=== PATIENT | female | born 1945 | race Caucasian/White ===

== ENCOUNTER 2024-03-11 10:00 | Outpatient (CLI) | payer MEDICARE, BC, SELFPAY ==
--- NOTE | 2024-03-11 10:15 | CRLHL7_ITS ---
For Patients: As a result of the Century Cures Act, medical imaging exams and procedure reports are released immediately into your electronic medical record. You may view this report before your referring provider. If you have questions, please contact your health care provider. Addendum: Pathology consistent with invasive ductal carcinoma, grade I/III. This is concordant. Appropriate action recommended. Dictated by: James Li MD @03/14/2024 1:14:56 PM / CRL:jj ULTRASOUND-GUIDED LEFT BREAST BIOPSY AND POST-BIOPSY DIGITAL MAMMOGRAM FOR BIOPSY MARKER PLACEMENT CLINICAL HISTORY: Indeterminate mass. COMPARISON STUDIES: 03/04/2024. TECHNIQUE: Real-time ultrasound with image documentation was used for targeting the breast lesion. Core biopsy specimens were obtained using an automated gun with a 18-gauge biopsy needle. Post-biopsy CC and ML digital mammograms were obtained to document position of the biopsy marker. CONSENT and TIME OUT: The procedure, risks, and alternatives were explained to the patient and a consent was signed. Philip Protocol was followed including pre-procedure verification that relevant information/documentation was available, reviewed and properly matched to the patient; consent accurate and complete; and equipment and supplies available. Time Out was conducted just prior to starting procedure to verify the four required elements: patient identity, correct side/site marked (if applicable), procedure, relevant images/results properly labeled and displayed (if applicable). PROCEDURE: The patient was positioned supine on the ultrasound table. The breast was prepped with ChloraPrep. 8 cc of 1 percent lidocaine used for local anesthesia. Core samples were obtained. A sterile metal biopsy clip was placed percutaneously to jeremiah the lesion position within the breast. The specimens were placed in 10% formalin and sent to the pathology department. Pressure was held on the biopsy site until all bleeding subsided. The skin incision was closed with Steri-Strips. An ice pack was positioned over the biopsy site. Post-biopsy instructions were reviewed with the patient, and a written copy was given to her. LATERALITY: LEFT breast. LESION: Heterogeneously hyperechoic solid nodule at mid depth measuring 6 x 5 x 7 mm at 9 o`clock 5 cm from the nipple. SUSPICION FOR MALIGNANCY: High. NUMBER OF SAMPLES: 6. BIOPSY CLIP SHAPE: Oval. PROXIMITY OF CLIP TO TARGET: Within the lesion. IMPRESSION: Ultrasound-guided breast biopsy. When the pathology report is available, an addendum to this report will be made. ACR not applicable Dictated by James Li MD @ 03/11/2024 11:21:47 AM /sp/fouzia SP/Dictated by: James Li MD @ 03/11/2024 11:22:00 AM Signed by: James Li @ 03/11/2024 2:24:59 PM (Electronic Signature) (Electronically Signed)
--- NOTE | 2024-03-11 11:00 | CRLHL7_ITS ---
For Patients: As a result of the Century Cures Act, medical imaging exams and procedure reports are released immediately into your electronic medical record. You may view this report before your referring provider. If you have questions, please contact your health care provider. PLEASE SEE LEFT BREAST ULTRASOUND-GUIDED BIOPSY OF SAME DAY. CRL:sp SP/Dictated by: James Li MD @ 03/11/2024 12:33:00 PM (Electronically Signed)
== END 2024-03-11 10:01 | disposition home or self-care (01) ==
LOC: US 10:03
PROVIDERS: PCP Family Medicine; Visit Provider Family Medicine
DX: N63.20 Unspecified lump in the left breast, unspecified quadrant (principal); C50.912 Malignant neoplasm of unspecified site of left female breast; R92.8 Other abnormal and inconclusive findings on diagnostic imaging of breast
CPT/HCPCS: 19083; 77065; 88305; 88360; 88361; A4648; A4649

== ENCOUNTER 2024-04-02 06:57 | Day surgery (SDC) | payer MEDICARE, BC, SELFPAY ==
[2024-04-02] VITALS (7 sets, daily range): BP systolic 99–139; BP diastolic 51–78; PULSE 74–84; RESP 16; TEMP 36.4–36.6; O2SAT 92–94; BMI 33.3
--- OUTSIDE RECORDS SUMMARY | 2024-04-02 07:09 | XMS_ITS | Clinical Summary ---
Author Organization [employer] [facility] Address [place], [place] [address] Care Team Providers Care Catering Sous Chef Name Role Phone Natalia Odonnell MD Unavailable [phone] Anna Trujillo MD Unavailable Shira Estes DO Primary Care Provider [phone] Allergies Active Allergy Reactions Criticality Noted Date Comments Dust Mites 11/16/2006 Medications Medication Sig Dispensed Refills Start Date End Date Status vit C-vit Q-myjcuv-bfur ox-lutein (PRESERVISION) 226 mg-200 unit -5 mg-0.8 mg cap Take 1 capsule by mouth once daily. 0 11/29/2016 Active inhalational spacing deviceIndications:Road Train Driver gigi obstructive pulmonary disease, unspecified COPD type (HC) For home use. 1 for each inhaler 2 Each 12/13/2021 Active valACYclovir (VALTREX) 1 gram tabletIndications:Cold sore 2 g twice daily for 1 day 4 Tablet 2 12/14/2022 Active Ca carb-Ca gluc-Mg ox-Mg gluco (Calcium Magnesium) 500 mg calcium -250 mg tabIndications:Osteope shonda of both hips Take 1 Tablet by mouth once daily. 90 Tablet 3 01/16/2023 Active albuterol HFA (Ventolin HFA) 90 mcg/actuation inhalerIndications:Chr onic obstructive pulmonary disease, unspecified COPD type (HC) Inhale 2 Puffs by mouth every 4 hours if needed for Shortness of Breath 1st choice or Wheezing 1st choice. 1 Each 3 12/07/2023 Active alendronate (FOSAMAX) 70 mg tabletIndications:Oste openia of both hips Take 1 Tablet (70 mg) by mouth once a week in the morning. Take on empty stomach with full glass of water. Do not lie down for 1 hr. 12 Tablet 3 12/07/2023 Active atorvastatin (LIPITOR) 20 mg tabletIndications:Hype rlipidemia, unspecified hyperlipidemia type Take 1 Tablet (20 mg) by mouth at bedtime. 90 Tablet 3 12/07/2023 Active fluticasone (50 mcg per actuation) nasal solution (FLONASE)Indications:A llergic rhinitis due to pollen, unspecified seasonality Inhale 2 Sprays to both nostrils once daily. 16 g 3 12/07/2023 Active fluticasone propion-salmeteroL (Advair Diskus) 250-50 mcg/Dose diskus inhalerIndications:Chr onic obstructive pulmonary disease, unspecified COPD type (HC) Inhale 1 Puff by mouth two times daily. 3 Each 3 12/07/2023 Active ibuprofen (ADVIL; MOTRIN) 800 mg tabletIndications:Pain 1 tablet by mouth daily with food 90 Tablet 2 12/07/2023 Active ipratropium (Atrovent HFA) 17 mcg/actuation inhalerIndications:Chr onic obstructive pulmonary disease, unspecified COPD type (HC) Inhale 1 Puff by mouth two times daily. 12.9 g 3 12/07/2023 Active levothyroxine (SYNTHROID) 137 mcg tabletIndications:Acqu ired hypothyroidism Take 1 Tablet (137 mcg) by mouth before breakfast. Best if taken on empty stomach. 90 Tablet 3 01/21/2024 Active Active Problems Problem Noted Date Diagnosed Date ACP (advance care planning) 02/11/2020 Overview: HCD has been received. See HCD 04/30/2020. FRANCIA Woods Advance Care Planning Educator Helped patient 1:1 reviewing the Health Care Directive by phone. She will send in once completed. FRANCIA Woods Advance Care Planning Educator CODE STATUS VARIABLE (see below) 12/06/2018 Overview: As of 11/2019: Patient tells me if she was in hospital and needed resuscitated she would want to be FULL CODE unless covid19 would NOT want intubated. If in fpc care or had cancer, would NOT want to be resuscitated. Would NOT want resuscitated if found down at home. Patient reports she has 2 sons and knows they would make right decision. Osteopenia of thigh 12/19/2017 Overview: Dexa 11/2017, basic bone health recommended. Repeat 3-5yrs Colon polyps 09/26/2014 Personal history of colonic polyps 03/30/2012 Overview: Colonoscopy 02/2012 diverticulosis repeat in 5 years Colonoscopy 03/2017 diverticulosis repeat in 5 years Colonoscopy 03/2022 severe diverticuli, repeat in 5 years, propofol COPD (chronic obstructive pulmonary disease) Pancreatic cyst 12/20/2011 Overview: History pancreatic cyst, was followed by [facility]. At last visit with them??told no longer need follow since stable for years (see scanned consult).??She saw Dr Hancock 03/2018 for 2nd opinion and plan was to get MRI 1 year later to confirm stability per note.??This was postponed due to COVID-19 pandemic. Repeat then done 11/2020 as below Abdominal MRI 11/2020: pancreatic cyst is 3mm and unchanged. The radiologist recommended follow up abdominal MRI in 2 years. Other and unspecified hyperlipidemia 11/16/2006 Unspecified hypothyroidism 11/16/2006 Macular degeneration (senile) of retina, unspeci fied 11/16/2006 Resolved Problems Problem Noted Date Diagnosed Date Resolved Date Severe obesity (BMI 35.0-39. 9) with comorbidity 06/27/2016 12/14/2022 Osteoporosis, unspecified 11/16/2006 Encounters Date Type Department Care Team Description 03/19/2024 Telephone [facility] [address] [place] [address] Fabian Ledbetter MD ORDER NEEDED 03/18/2024 2:20 PM CDT Preop Visit [facility] [address] [place] [address] Shira Etses DO Preoperative Exam (04/02/24, Lumpectomy, [facility] Dr. Ledbetter) 03/18/2024 1:30 PM CDT Office Visit [facility] [address] [place] [address] Fabian Ledbetter MD Consult (lump in left breast) 03/18/2024 Travel 03/12/2024 Orders Only [facility] [address] [place] [address] Shira Estes DO 3 scans: (3-Ord) [facility], US GUIDED BIOPSY LT, 03/11/2024 03/11/2024 Lab Requisition [facility] [phone] Unknown, Doctor 03/04/2024 2:30 PM CDT Ancillary Procedure [facility] [address] [place] [address] 03/04/2024 2:00 PM CDT Ancillary Procedure [facility] [address] [place] [address] 03/04/2024 Ancillary Orders [facility] [address] [place] [address] Shira Estes DO 03/04/2024 Travel 02/15/2024 Telephone [facility] [address] [place] [address] Shira Estes DO Imaging (mammogram results) 02/13/2024 9:20 AM CDT Ancillary Procedure [facility] [address] [place] [address] 02/13/2024 Travel 01/21/2024 Orders Only [facility] [address] [place] [address] Shira Estes DO <No scans attached> 01/17/2024 10:25 AM CDT Office Visit [facility] [address] [place] [address] Shira Estes DO Preoperative Exam (7/11/24 right cataract surgery [facility]); Hernia (Above umbilicus) 01/17/2024 Travel 01/03/2024 Orders Only [facility] Scanner 1 scan: (1-Ord) [facility], SHAVE BIOPSIES: RT CENTRAL MALAR CHEEK, LT INFERIOR ANTERIOR NECK, and LT PROXIMAL MEDIAL CALF , 01/03/2024 from Last 3 Months Immunizations Name Administration Dates Next Due Amb Influenza, Inactivated A IIV4 (Age 65+ Years) Preserv Free 05/05/2020 COVID-19 vaccine (Moderna 100mcg/0.5mL) PF, MDV 09/15/2020,08/18/2020 COVID-19 vaccine (Moderna Baltazar mee 50mcg/0.25mL) PF, MDV 11/10/2021,06/03/2021 Influenza A (H1N1), Inactiva isaias (Age >=3 Years) 07/18/2009 Influenza, High-dose Inactivated 019,05/09/2018,05/02/2015,04/15 Influenza, High-dose Quadriv alent Inactivated 04/21/2022,04/16/2021 Influenza, IIV3 (Age >=3 years) 03/31/2009 Influenza, Inactivated AIIV4 (Age 65+ Years) Preserv Free 04/17/2023 Influenza, Inactivated IIV3 (Age 65+ Years) Preserv Free 03/28/2017 Pneumococcal Poly,23-Valent (Pneumovax) 11/29/2016,12/11/2008 Pneumococcal conj 13-Valent (Prevnar 13) 12/08/2014 RSV, Recombinant ADJ Reconst ituted (Arexvy 120MCG/0.5mL) 04/17/2023 Td, Preservative Free (age >= 7 Years) 8 Tdap 01/20/2022 Zoster (Shingrix-RZV, recombinant) 04/04/2018, Zoster (Zostavax-ZVL, live) 02/26/2007 Family History Medical History Relation Name Comments Cancer-breast Mother Cancer-breast Sister half sister Cancer-ovarian No Family History Relation Name Status Comments Father (Age 52) gastric ca ncer Mother (Age 71) breast can cer Sister Son 1 Alive Son 2 Alive Social History Tobacco Use Types Packs/Day Years Used Date Smoking Tobacco: Former Smokeless Tobacco: Never Tobacco Cessation:Counseling Given: Yes Alcohol Use Standard Drinks/Week Comments Yes 7 (1 standard drink = 0.6 oz pur e alcohol) PHQ-2 Answer Date Recorded PHQ-2 TOTAL SCORE 0 12/14/2022 Social Connections Answer Date Recorded Frequency of Communication with Friends and Fami ly Not on file 12/14/2022 Alcohol Use Answer Date Recorded How often do you have a drink containing alcohol ? 4 01/16/2023 How many drinks containing a lcohol do you have on a typical day when you are drinking? 0 01/16/2023 How often do you have five or more drinks on one occasion? 0 01/16/2023 Financial Resource Strain Answer Date R ecorded Difficulty of Paying Living Expenses 3 12/13/2021 Difficulty of Paying Living Expenses Not on file 12/13/2021 Food Insecurity Answer Date Recorded Worried About Running Out of Food in the Last Ye ar 1 12/13/2021 Transportation Needs Answer Date Record ed Lack of Transportation (Medical) 1 12/13/2021 Housing Stability Answer Date Recorded Unable to Pay for Housing in the Last Year 1 12/13/2021 Sex and Gender Information Value Date Recorded Sex Assigned at Not on file Gender Identity Not on file Sexual Orientation Not on file Obstetrics History Para Term AB IAB SAB Ectopic Multiple Livin g Live Births 2 2 2 Date Outcome GA Total Labor Labor/2nd/3rd Weight Sex Type Anes PTL Jacqueline A1 A5 Name Clin C-Sec tion Living C-Sec tion Living Last Filed Vital Signs Vital Sign Reading Time Taken Comments Blood Pressure 137/72 03/18/2024 2:25 PM CDT Pulse 78 03/18/2024 2:25 PM CDT Temperature 36.6 ??C (97.9 ??F) 05/18/2023 2:57 PM CD T Respiratory Rate 16 12/10/2013 9:44 AM CDT Oxygen Saturation 95% 03/18/2024 2:25 PM CDT Inhaled Oxygen Concentration - - Weight 91.2 kg (201 lb) 03/18/2024 2:25 PM CDT Height 165.1 cm (5' 5) 03/18/2024 2:25 PM CDT Body Mass Index 33.45 03/18/2024 2:25 PM CDT Plan of Treatment Health Maintenance Due Date Last Done Comments COVID-19 vaccine series ( season) 2023 05/09/2023, 04/28/2022, 11/10/2021, Additional history exists Depression screening for age 12+ 12/15/2023 12/14/2022, 12/14/2022, 12/13/2021, Additional history exists Medicare Wellness for age 65+ 12/15/2023, 12/13/2021, 12/09/2020, Additional history exists Influenza for age 65+ 03/31/2024 04/17/2023 , 04/21/2022, 04/16/2021, Additional history exists BMI (ht and wt on same day) for age 18+ 03/18/2025 03/18/2024, 12/14/2022, 02/16/2022, Additional history exists Tetanus booster 01/21/2032 01/20/2022, 12/06/2007 Hepatitis C screening for ag e 18-79 Completed 11/29/2016 Pneumococcal series for age 65+ Completed 11/29/2016, 12/08/2014, 12/11/2008 Zoster (shingles) series for age 50+ Completed 04/04/2018, 12/07/2017, 02/26/2007 Tdap Completed 01/20/2022 DEXA/DXA scan for age 65+ Completed 2022, 12/12/2017, 01/06/2015, Additional history exists Procedures Procedure Name Priority Date/Time Associated Diagnosis Comments LAB TRACKING EVENT Routine 03/11/2024 10 :44 AM CDT PATH BREAST CORE BIOPSY Routine 03/11/2024 10:44 AM CDT US BIOPSY BREAST NEEDLE W GAIL W GUIDE LEFT SOMMER 03/11/2024 12:00 AM CDT Abnormal mammogram XR MAMMO POST CLIP PLCMT LT Routine 03/11/2024 12:00 AM CDT Abnormal mammogram US BREAST UNILATERAL LEFT LIMITED SOMMER 03/04/2024 2:25 PM CDT Abnormal mammogram XR MAMMO KAITLYN UNI ADDL VIEWS LEFT SOMMER 03/04/2024 2:09 PM CDT Abnormal mammogram XR MAMMO KAITLYN BILAT SCREEN Routine 02/13/2024 9:32 AM CDT Known health problems: none LDL CHOLESTEROL,DIRECT Routine 01/17/2024 11:13 AM CDT Hyperlipidemia, unspecified hyperlipidemia type TSH Routine 01/17/2024 11:13 AM CDT Acquired hypothyroidism SCAN-OPERATIVE/PROC EDURE REPORT 01/03/2024 12:00 AM CDT XR DXA BONE DENSITY 2 SITES AXIAL Routine 12/14/2022 10:55 AM CDT Osteopenia of thigh, unspecified laterality Other specified disorders of bone density and structure, right thigh ANTI HCV Routine 11/29/2016 11:10 AM CDT Need for hepatitis C screening test from Last 3 Months or Most Recently Relevant to Health Maintenance Results * LAB TRACKING EVENT (03/11/2024 10:44 AM CDT) Other (Other) Client Collect / Unknown 03/11/2024 10:44 AM CDT 03/11/2024 10:45 PM CDT Doctor Unknown LAB BILL ONLY Performing Organization Address City/State/[facility] Co de Phone Number [facility] [address] [place] [id number] * PATH BREAST CORE BIOPSY (03/11/2024 10:44 AM CDT) Case Report Pathology Report ?Case: [id number] ? Authorizing Provider: ??Unknown, Doctor ?Collected: ? 03/11/2024 1044 ? Ordering Location: ? [facility] ?Received: ?03/12/2024 0936 ? Pathologist: ? Anastasiia Sharp MD ? Specimen: ?Left Breast Core Ultrasound Biopsy ? 03/14/2024 11:38 AM CDT [employer] ENTRAL LABORATORY Amendment 03/14/2024 - Amendment issued to incorporate ancillary studies. 03/14/2024 11:38 AM CDT [facility] ENTRAL LABORATORY Final Diagnosis A) LEFT BREAST, 9:00, 5 CM FROM NIPPLE, ULTRASOUND-GUID ED CORE BIOPSY: 1. Invasive ductal carcinoma ?? a. [place] grade: I of III; Tangela score: 5 of 9 ?? b. Angio-lymphatic invasion: Absent ?? c. Associated DCIS: Absent 2. Breast Ancillary Testing: ?a. Hormone Receptors: ?Estrogen receptor: Positive (94%, strong staining) ?Progesterone receptor: Positive (99%, strong staining) ?b. HER2 by IHC: Negative (1+ by manual morphometry) ?c. Ki-67: 9% 03/14/2024 11:38 AM CDT [facility] ENTRAL LABORATORY Amendment electronically signed by Sarah Scott MD on 03/14/2024 at 11:38 AM Comment A) This is an image-guided breast biopsy. The pathologic findings should be correlated with radiologic and clinical findings prior to treatment decisions. Case seen in consultation with Dr. Cardona. 03/14/2024 11:38 AM T [facility] Clinical Information A) Left breast irregular, circumscribed, solid, hypoechoic mass measuring 6 x 5 x 7 mm at 9:00, 5 cm from the nipple 03/14/2024 11:38 AM [facility] LABORATORY-C [facility] Gross Description A) Label: ??Patient's name and left breast 9:00 5 cm Description: 5 Fibrofatty core biopsies Size: 0.5-1.4 cm in length by 0.2 cm in diameter Ink color: Green The specimen is submitted in toto in one cassette. Cold ischemic time: Less than 60 minutes, meets current ASCO/CAP guidelines. ?? The specimen was fixed in formalin for a minimum of 6 hours and not longer than 72 hours. TLF 03/12/2024 03/14/2024 11:38 AM [facility] [facility] LABORATORY-C [facility] Microscopic Description The final diagnosis is based on microscopic examination of appropriate sections of all specimens A) The presence of green ink is confirmed on tissue sections. 03/14/2024 11:38 AM [facility] [employer] [facility] SYNOPTIC REPORTING Breast Biomarker Reporting Template BREAST BIOMARKER REPORTING TEMPLATE - A Protocol posted: 07/12/2023 ?? Test(s) Performed: ? Estrogen Receptor (ER) Status: ?Positive (greater than 10% of cells demonstrate nuclear positivity) ? Percentage of Cells with Nuclear Positivity: ?99 % ? Average Intensity of Staining: ?Strong ? Test Type: ?Laboratory-de veloped test ? Primary Antibody: ?SP1 ?? Test(s) Performed: ? Progesterone Receptor (PgR) Status: ?Positive ? Percentage of Cells with Nuclear Positivity: ?99 % ? Average Intensity of Staining: ?Strong ? Test Type: ?Laboratory-de veloped test ? Primary Antibody: ?16 ?? Test(s) Performed: ? HER2 by Immunohistochem istry: ?Negative (Score 1+) ? Test Type: ?Laboratory-de veloped test ? Primary Antibody: ?4B5 ?? Test(s) Performed: ?Ki-67 ? Ki-67 Percentage of Positive Nuclei: ?9 % ? Primary Antibody: ?MIB1 ?? Cold Ischemia and Fixation Times: ?Meet requirements specified in latest version of the ASCO / CAP Guidelines ?? Testing Performed on Block Number(s): ?A1 METHODS ?? Fixative: ?Formalin ?? Image Analysis: ?Performed ? Method: ?Aperio morphometric analysis ? Biomarkers Scored by Image Analysis: ?ER ? Biomarkers Scored by Image Analysis: ?PgR ? Biomarkers Scored by Image Analysis: ?Ki-67 ?? Comment(s): ?2338 cells analyzed for Ki-67 03/14/2024 11:38 AM CDT [facility] Additional Information Patients with breast cancers that are HER2 IHC 3+ or IHC 2+/JUJU amplified may be eligible for several therapies that disrupt HER2 signaling pathways. Invasive breast cancers that test 'HER2-negative' (IHC 0, 1+ or 2+/JUJU not-amplified) are more specifically considered 'HER2-negative for protein overexpression/ gene amplification' since non-overexpress ed levels of the HER2 protein may be present in these cases. Patients with breast cancers that are HER2 IHC 1+ or IHC 2+/JUJU not amplified may be eligible for a treatment that targets non-amplified/n on-overexpresse d levels of HER2 expression for cytotoxic drug delivery (IHC 0 results do not result in eligibility currently). Interpreted at [facility], Central Laboratory - [address], [place] [address] Immunohistochem istry controls were reviewed and approved by the pathologist during this examination. 03/14/2024 11:38 AM CDT [facility]AL LAB[facility]ORY Other (Left Breast Core Ultrasound Biopsy) 03/11/2024 10:44 AM CDT 03/12/2024 9:36 AM CDT Doctor Unknown PATHOLOGY/CYTOLOGY [facility]ORY [address] [place] [address], [place] * US BIOPSY BREAST NEEDLE W GAIL W GUIDE LEFT (03/11/2024 12:00 AM CDT) Anatomical Region Laterality Modality Breast Left Left Ultrasound Shira Mahi Stortz DO US * XR MAMMO POST CLIP PLCMT LT (03/11/2024 12:00 AM CDT) Anatomical Region Laterality Modality BREASTS N/A Mammography Shira Mahi Stortz DO MAMMO * US BREAST UNILATERAL LEFT LIMITED (03/04/2024 2:25 PM CDT) Anatomical Region Laterality Modality BREASTS, Breast Left, Breast Right Left Ultrasound Narrative 03/05/2024 2:00 PM CDT As a result of the Century Cures Act, medical imaging exams and procedure reports are released immediately into your electronic medical record. ??You may view this report before your referring provider. ??If you have questions, please contact your health care provider. LEFT BREAST ULTRASOUND 03/04/2024 PLEASE SEE [id number] FOR LEFT DIGITAL ADDITIONAL VIEWS MAMMOGRAM OF SAME DAY. Shira Mahi Stortz DO US * XR MAMMO KAITLYN UNI ADDL VIEWS LEFT (03/04/2024 2:09 PM CDT) Anatomical Region Laterality Modality BREASTS, Breast Left Mammography 03/04/2024 3:27 PM CDT Impressions 03/05/2024 2:00 PM CDT Suspicious nodule LEFT breast 9 o'clock 5 cm from the nipple measuring 7 millimeters. RECOMMENDATIONS: Ultrasound-guided core needle biopsy. BI-RADS: 4. Suspicious. Results and recommendations discussed with the patient. Dictated by: James Li MD @03/04/2024 3:27:30 PM/kami PATIENTS: You will also receive a letter with your examination results in an easy to read format. ??If you have questions about your results, please contact your referring provider. Narrative 03/05/2024 2:00 PM CDT As a result of the Century Cures Act, medical imaging exams and procedure reports are released immediately into your electronic medical record. ??You may view this report before your referring provider. ??If you have questions, please contact your health care provider. LEFT BREAST MAMMOGRAM DIGITAL ADDITIONAL VIEWS WITH TOMOSYNTHESIS 03/04/2024 LEFT BREAST ULTRASOUND 03/04/2024 CLINICAL HISTORY: LEFT breast mass/asymmetry. COMPARISON: 02/13/2024. TECHNIQUE: Digital LEFT mammogram in 2 projections with computer-aided detection. Real-time ultrasound imaging of LEFT breast with imaging documentation. BREAST COMPOSITION: There are scattered areas of fibroglandular density. FINDINGS: 3D spot compression CC/MLO LEFT breast mammogram images submitted. Persistent nodular density within the medial LEFT breast. No suspicious calcifications. Targeted LEFT breast ultrasound performed at 9 o'clock 5 cm from the nipple. In this location, there is a solid heterogeneous hypoechoic/hyperechoic nodule with spiculated margins measuring 6 x 5 x 7 millimeters. Shira Estes DO MAMMO * XR MAMMO KAITLYN BILAT SCREEN (02/13/2024 9:32 AM CDT) Anatomical Region Laterality Modality BREASTS, Breast Left, Breast Right Bilateral Mammography 02/14/2024 3:02 PM CDT Impressions 02/14/2024 3:43 PM CDT LEFT breast asymmetry/mass. RECOMMENDATIONS: Additional mammographic views of the LEFT breast including 3D spot-compression CC/MLO. LEFT breast ultrasound may also be required. A member of the health care team will contact the patient to schedule the required additional imaging appointment. BI-RADS Category 0: Incomplete: Need Additional Imaging Evaluation and/or Prior Mammograms for Comparison. Dictated by: James Li MD @02/14/2024 3:02:31 PM /sp Narrative 02/14/2024 3:43 PM CDT As a result of the Century Cures Act, medical imaging exams and procedure reports are released immediately into your electronic medical record. ??You may view this report before your referring provider. ??If you have questions, please contact your health care provider. BILATERAL BREAST MAMMOGRAM DIGITAL SCREENING WITH COMPUTER-AIDED DETECTION AND TOMOSYNTHESIS 02/13/2024 ?? CLINICAL HISTORY: Routine screening exam. COMPARISON: 02/06/2023, 02/02/2022, 01/28/2021 TECHNIQUE: Digital mammogram in CC and MLO projections including computer-aided detection (CAD). Tomosynthesis was used in this interpretation. BREAST COMPOSITION: The breasts are almost entirely fatty. FINDINGS: RIGHT Breast: No suspicious findings. LEFT Breast: Focal nodular density within the lower inner quadrant LEFT breast 6 cm from the nipple. Shira Estes DO MAMMO * TSH (01/17/2024 11:13 AM CDT) TSH 2.55 0.27 - 4.20 uIU/mL 01/18/2024 3:59 AM CDT [facility] Blood BLOOD SPECIMEN / Unknown Venipuncture / Unknown 01/17/2024 11:13 AM CDT 01/17/2024 11:16 AM CDT Narrative [facility] - 01/18/2024 3:59 AM CDT In Adults, TSH values between 5.00 and 10.00 uIU/ml do not necessarily indicate the presence of Hypothyroidism. Correlation with clinical findings such as presence of goiter and/or Thyroperoxidase (TPO) Antibody may be helpful. For more information please refer to GALINA 2004; 291: 228-238. Shira Estes DO CHEMISTRY [facility] [address] [place] [address], * LDL CHOLESTEROL,DIRECT (01/17/2024 11:13 AM CDT) LDL CHOLESTEROL,DI RECT 111 mg/dL 01/18/2024 3:59 AM CDT [facility] PROVIDER ORDERED STATUS RANDOM 01/18/2024 3:59 AM CDT [facility] Blood BLOOD SPECIMEN / Unknown Venipuncture / Unknown 01/17/2024 11:13 AM CDT 01/17/2024 11:16 AM CDT Narrative [facility] - 01/18/2024 3:59 AM CDT Optimal ?<100 mg/dl Near Optimal ?100-129 mg/dl Borderline High ?? 130-159 mg/dl High ?160-189 mg/dl Very High ? >=190 mg/dl Shira Estes DO CHEMISTRY [facility] [address] [place] [id number], * SCAN-OPERATIVE/PROCEDURE REPORT (01/03/2024 12:00 AM CDT) Scanner OTHER * (ABNORMAL) XR DXA BONE DENSITY 2 SITES AXIAL (12/14/2022 10:55 AM CDT) Anatomical Region Laterality Modality Spine, HIPS, HIPL, HIPR Other Impressions 12/15/2022 11:04 AM CDT Osteopenia. RECOMMENDATIONS: The National Osteoporosis Foundation recommends pharmacologic treatment for patients with T-scores of -2.5 or less, patients with prior history of fragility fractures, or patients with 10-year probability of greater than 3% at hips or greater than 20% of suffering major osteoporotic fractures. Recommend continued optimization of calcium and vitamin D intake through dietary means and/or supplementation and regular exercise. Consider pharmacologic therapy for osteopenia with increased fracture risk. Follow-up bone density reading in 2 years if therapy initiated to assess therapeutic efficacy. Linda Scott PA-C [facility] 12/15/2022 Narrative 12/15/2022 11:04 AM CDT For Patients: Results are automatically released to your [facility] account once available, in compliance with federal regulations. This means that you may see your results before your provider has had a chance to review them. Please allow 2-3 business days for your provider to comment on the results. XR DXA Bone Mineral Density (BMD) EXAM LOCATION: [facility] [address] [address] PATIENT NAME: Polly Alfredo DATE OF : 1945 EXAM DATE: 12/14/2022 REQUESTING PROVIDER: Shira Estes, DO GENDER AT : female HEIGHT: 5' 4.5 (12/14/2022) WEIGHT: ??205 lb (12/14/2022) MENOPAUSAL STATUS: Postmenopausal RACE/ETHNICITY: White RISK FACTORS: History of Fragility Fracture (at a major site), Smoking (prior) and White Race CURRENT MEDICATION FOR BONE LOSS: NONE INDICATION: Follow-up of existing osteopenia and Post-Menopause COMPARISON DATE(S): 2018 DXA scans are compared to prior studies for a patient only when the two (or more) studies were performed on the same scanner. It is not possible to compare data generated on one scanner to data from another because there are not standards in DXA equipment. This applies even if the two scanners are made by the same survey researcher. PROCEDURE: Dual-energy x-ray absorptiometry performed with routine technique. Reporting is completed in the form of a T-score. The T-score represents the standard deviation from peak bone mass based on young healthy adult. A Z-score is used for diagnosis in premenopausal women, and for men under the age of 50. FINDINGS: RESULT LUMBAR SPINE L1 - L4 ??BMD: 0.915 g/cm2 T-Score: - 2.3 Z-Score: - 1.4 Change from prior in 2018: ??Decrease 5.6%. RESULTS FEMUR Left femoral neck BMD: 0.736 g/cm2 T-Score: - 2.2 Z-Score: - 0.7 Change from prior in 2018: ??Decrease 7.7%. Right femoral neck BMD: 0.703 g/cm2 T-Score: - 2.4 Z-Score: - 1.0 Change from prior in 2018: ??Decrease 14.8%. Left hip BMD: 0.702 g/cm2 T-Score: - 2.4 Z-Score: - 1.2 Change from prior in 2018: ??Decrease 8.6%. Right hip BMD: 0.750 g/cm2 T-Score: - 2.0 Z-Score: - 0.8 Change from prior in 2018: ??Decrease 2.6%. WHO criteria: Normal: T-score at or above -1 SD Osteopenia: T-score between -1.1 and -2.4 SD Osteoporosis: T-score at or below -2.5 SD FRAX RISK CALCULATION (USED FOR OSTEOPENIA ONLY): 10-year probability of major osteoporotic fracture: 23.8%. 10-year probability of hip fracture: 7.0%. Shira Estes DO DEXA * ANTI HCV [87515.2] (11/29/2016 11:10 AM CDT) Pathologist [facility] HEPATITIS C ANTIBODY Non-Reacti ve Non-Reacti ve 11/29/2016 7:09 PM CDT [facility] TR[facility] Blood BLOOD SPECIMEN / Unknown Venipuncture / Unknown 11/29/2016 11:10 AM CDT 11/29/2016 11:10 AM CDT Narrative [facility] [employer] [facility] - 11/29/2016 7:09 PM CDT Antibodies to HCV not detected; does not exclude the possibility of exposure to HCV. Shira Estes DO SEND OUTS [facility] 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
--- OUTSIDE RECORDS SUMMARY | 2024-04-02 07:09 | XMS_ITS | Continuity of Care Document ---
Author Organization [facility] Address [address] [address] [place] [address] Phone Care Team Providers Care Economic Consultant Name Role Phone Cassandra FERNANDEZ, Anna Hernandez Unavailable Unavaila ble Medications Medication Instructions Dosage Effective Dates (start - stop) Status Comments ciprofloxacin 500 mg Tab take 1 tablet (500MG) by oral route every 12 hours 500 MG - Active Procedures Procedure Date Ugi Endo; W/us Guid Asp/bx Ugi Endo; W/us Guid Asp/bx Advance Directives Directive Yes / No Effective Date File Name No Information Encounters Encounter Description Practice Location Reason(s) For Visit Diagnoses Date Provider Providers Copied on Encounter [facility], [address] [address], [place], [place], [id number], tel:[phone] [facility] No Information 7 Cassandra Paige [address] [place] [address], [id number] , [place]. tel: [phone] [facility], [address] [address], [place], [place], [id number], [place] tel:[phone] [facility] Pancreat Cyst/pseudoc ystPseudocys t of pancreas 5 Cassandra Paige [address] [place] [address], [id number] , [place]. tel:[phone] [facility], [address] [address], [place], [place], [id number], [place] tel:[phone] [facility] Pancreat Cyst/pseudoc yst 4 Cassandra Paige [address] [facility], [place], [place], [id number] , [place]. tel: [phone] [facility], [address] [address], [place], [place], [id number], [place] tel:[phone] [facility] Pancreat Cyst/pseudoc yst 4 Cassandra Hernandez. [address] [facility], [place], [place], [id number] , [place]. tel: [phone] [facility], [address] [address], [place], [place], [id number], [place] tel:[phone] [facility] No Information 2 Cassandra Hernandez. [address] [facility], [place], [place], [id number] , [place]. tel: [phone] [facility], [address] [address], [place], [place], [id number], [place] tel:[phone] [facility] No Information 2 Cassandra Hernandez. [address] [facility], [facility] [address], [place], [place], [id number] , [place]. tel: [phone] Referring Provider: Garrett Gan MD, [address] [facility], [address]. tel:[phone] [facility], [address] [address], [place], [place], [id number], [place] tel:[phone] [facility] No Information 1 Cassandra Paige [address] [facility], [facility] [address], [place], [place], [id number] , [place]. tel:[phone] Referring Provider: Garrett Gan MD, [address] [place], [address]. tel:[phone] Family History Family Member Type Diagnosis Age At Onset No Information Payers Payer name Insurance type Covered republican ID Authoriza tion(s) No Information Social History Type Description Quantity Date Captured Comments Sex Female Smoking Status No Information Chief Complaint And Reason For Visit No Information Reason For Referral Reason For Referral No Information Plan Of Treatment Date Type Action Status Referral Ordered: MRI Pancreas WITH Contrast Appointment date/timeframe: 12/06/2016 ordered History Of Present Illness Encounter Date Complaint History Of Prese nt Illness No Information Functional Status Date Functional Assessmen t No Information Instructions Date Instruction Additional Infor javan MRI Abdomen Assessments Type Assessment Date No Information Patient Care Teams Name Effective Dates (start - stop) Status Members No Information
[2024-04-02] MEDS: SODIUM CHLORIDE 0.9 % (FLUSH) 10 ML SYRINGE IVF (07:35)
[2024-04-02] MEDS: LACTATED RINGERS 1000 ML 1,000 ML 100 ML IV (07:35)
--- NOTE | 2024-04-02 08:15 | CRLHL7_ITS ---
For Patients: As a result of the Cures Act, medical imaging exams and procedure reports are released immediately into your electronic medical record. You may view this report before your referring provider. If you have questions, please contact your health care provider. BREAST WIRE LOCALIZATION USING ULTRASOUND GUIDANCE CLINICAL HISTORY: Invasive ductal carcinoma of LEFT breast. LATERALITY: LEFT breast. LESION: Hyperechoic solid nodule 9 o`clock 5 cm from the nipple measuring 6 x 5 x 7 millimeters. LOCALIZATION WIRE: Kopans hookwire. TECHNIQUE: The localization wire was placed using real-time ultrasound guidance with image documentation. Cranial-caudal and medial-lateral digital mammograms were obtained after localization wire placement. CONSENT and TIME OUT: The procedure, risks, and alternatives were explained to the patient and a consent was signed. [employer] Protocol was followed including pre-procedure verification that relevant information/documentation was available, reviewed and properly matched to the patient; consent accurate and complete; and equipment and supplies available. Time Out was conducted just prior to starting procedure to verify the four required elements: patient identity, correct side/site marked (if applicable), procedure, relevant images/results properly labeled and displayed (if applicable). PROCEDURE: The skin was prepped with ChloraPrep and 5 cc of 1% lidocaine was injected for local anesthesia. The localization wire was placed within or near the targeted breast lesion using ultrasound guidance. The patient tolerated the procedure well. PROXIMITY OF WIRE TO LESION: The wire is located 7 millimeters from the biopsy clip. IMPRESSION: Successful breast wire localization. ACR not applicable Dictated by James Li MD @ 04/02/2024 10:40:15 AM jj/Dictated by: James Li MD @ 04/02/2024 10:40:00 AM (Electronically Signed)
--- NOTE | 2024-04-02 09:00 | CRLHL7_ITS ---
For Patients: As a result of the Century Cures Act, medical imaging exams and procedure reports are released immediately into your electronic medical record. You may view this report before your referring provider. If you have questions, please contact your health care provider. PLEASE SEE ULTRASOUND-GUIDED LEFT BREAST WIRE LOCALIZATION PERFORMED SAME DAY CRL:fouzia fragoso/Dictated by: James Li MD @ 04/02/2024 9:56:00 AM (Electronically Signed)
--- NOTE | 2024-04-02 09:10 | W.PM.H&PU ---
History & Physical Update History & Physical Update H&P Reviewed and patient assessed: No changes noted
--- NOTE | 2024-04-02 09:11 | P.GSOP_ITS ---
Operative Note Date of procedure: 04/02/24 Pre-op diagnosis: 1. Left invasive ductal carcinoma. Post-op diagnosis: Same Type of Procedure: 1. Wire localized left lumpectomy. Indications: 78-year-old female was seen in clinic for evaluation of newly diagnosed left breast invasive ductal carcinoma that was found on her routine mammogram. Her follow-up ultrasound after mammogram showed 6 x 7 mm irregular mass at 9:00 5 cm from the nipple. Core needle biopsy confirmed presence of invasive ductal carcinoma, grade 1 of 3, with no angiolymphatic invasion, ER/AK positive and HER2 negative, Ki I 67 of 9%. On clinical exam patient had pendulous breasts. In the left breast there was post biopsy ecchymosis but the mass was not palpable. No masses were palpated on the right side. There was no axillary lymphadenopathy bilaterally. Given patient's clinical history, her age and her pathologic diagnosis, wire localized left lumpectomy was recommended. The procedure was discussed in detail. The risks associated with procedure including infection, bleeding, the need for additional procedures, and other complications were all discussed with the patient, and she agreed to proceed. Procedure Description: After discussing the risks and benefits of the procedure, the patient signed i nformed consent.? The operative site was marked and the patient was brought to the operating room and placed on the operating table in supine position.? Care was taken to pad the patient's pressure points.?? The patient was then Sedated by anesthesia.?? The operative site was then prepped and draped in the usual sterile fashion.? A time-out was then performed. Pre-operative mammographic films taken after wire localization were reviewed. The mixture of Lidocaine and Marcaine was used as local anesthetic and was injected at the site of the incision. The lumpectomy was performed by making a? curvilinear periareolar incision in the? left breast spanning from?7 to 11 o'clock.? Subcutaneous skin flaps were developed until the wire was encountered.? The wire was pulled into the surgical field. The breast tissue around the wire was then excised in a cylinder like fashion following the course of the wire using cautery.? This was done with frequent palpation of the wire.? The specimen was then excised making sure that the wire was still in the specimen. Margins of the specimen were inked and the specimen was then sent to mammography first to confirm presence of the wire and the clip and to pathology afterwards for gross margins. Pathologist reviewed the specimen and the tumor and the biopsy clip and the wire were personally identified by me in the surgical specimen.? All margins were grossly negative with the closest margin being 5 mm. Surgical field was examined for bleeding and any bleeding was controlled with electrocautery. Vascular clips were placed to jeremiah the lumpectomy cavity. Breast tissue was mobilized with cautery for tension free closure and re- approximated with interrupted 2-0 Vicryl stitches. Interrupted subdermal stitches were placed with 3-0 Vicryl as well and skin was closed with 4-0 Monocryl subcuticular stitch. Steristrips and sterile dressings were applied. At the end of the operation, all sponge, instrument, and needle counts were correct. Patient tolerated the procedure well and was transferred to same-day surgery in stable condition. Anesthesia: MAC and local Surgeon: Fabian Ledbetter MD Estimated blood loss (mL): 5 Additional Specimen Information: 1. Left lumpectomy. Condition: stable Disposition: same day
[2024-04-02] MEDS: CEFAZOLIN 2 GM INJ IVP (09:35)
--- NOTE | 2024-04-02 09:41 | W.ANESCHARGE ---
Anesthesia Charges Start Date/Time Anesthesia Start Date: 04/02/24 Anesthesia Start Time: 09:21 Stop Date/Time Anesthesia Stop Date: 04/02/24 Anesthesia Stop Time: 10:40 Summary Extremes of Age - Over 70 or under 1: MDA
--- NOTE | 2024-04-02 09:42 | CRLHL7_ITS ---
For Patients: As a result of the Cures Act, medical imaging exams and procedure reports are released immediately into your electronic medical record. You may view this report before your referring provider. If you have questions, please contact your health care provider. LEFT BREAST SPECIMEN RADIOGRAPH CLINICAL HISTORY: LEFT breast cancer, lumpectomy. COMPARISON: 04/02/2024, 03/11/2024, 03/04/2024. FINDINGS: Two views of the LEFT breast specimen are submitted. Localization wire is present along with the biopsied mass and biopsy clip. IMPRESSION: Specimen contains the primary mass along with the biopsy clip and localization wire. ACR not applicable Dictated by James Li MD @ 04/02/2024 10:38:43 AM jj/Dictated by: James Li MD @ 04/02/2024 10:38:00 AM (Electronically Signed)
[2024-04-02] MEDS: BUPIVACAINE 0.25% 30 ML INJECTION (09:45)
--- NOTE | 2024-04-02 10:44 | P.ANES_ITS ---
Anesthesia Charges Start Date/Time Anesthesia Start Date: 04/02/24 Anesthesia Start Time: 09:21 Stop Date/Time Anesthesia Stop Date: 04/02/24 Anesthesia Stop Time: 10:40 Summary Extremes of Age - Over 70 or under 1: ON CALL PHARMACY TECHNICIAN
== END 2024-04-02 12:05 | disposition home or self-care (01) ==
PROVIDERS: PCP Family Medicine; Visit Provider Surgery
PROC: (CPT 19301; principal; 2024-04-02 09:30)
PROC: (CPT 19301; 2024-04-02 09:30)
DX: C50.812 Malignant neoplasm of overlapping sites of left female breast (principal); Z17.0 Estrogen receptor positive status [ER+]
CPT/HCPCS: 19301; 00400; 19285; 77065; 88307; 99100; C1769; G0279; J0665; J0690; J2405; J2704; J3010; J3490; J7120

== ENCOUNTER 2024-05-09 14:32 | Outpatient (CLI) | payer MEDICARE, BC, SELFPAY ==
--- NOTE | 2024-05-09 15:00 | CRLHL7_ITS ---
For Patients: As a result of the Century Cures Act, medical imaging exams and procedure reports are released immediately into your electronic medical record. You may view this report before your referring provider. If you have questions, please contact your health care provider. DXA BONE MINERAL DENSITY STUDY Current height (in): 65.0. Weight (lb): 200.0. Menopause age: 52. Ethnicity: White. 1. Have you had a previous hip or vertebral fracture? No. 2. Have you had any fractures during your adult life which did not result from significant trauma (e.g., auto accident)? No. 3. Did either of your parents have a hip fracture? No. 4. Do you smoke? No. 5. Have you ever taken Glucocorticoids? No. 6. Do you have rheumatoid arthritis? No. 7. Do you have secondary osteoporosis? Yes. 8. Do you drink 3 or more alcoholic drinks per day? No. 9. Are you being treated for osteoporosis? Yes. 10. Have you ever taken any of the following medications: Actonel, Evista, Fosamax, Miacalcin, Reclast, Boniva, Forteo, HRT (i.e. estrogen/hormone therapy), Protelos, Prolia, Vitamin D, Calcium, other ??? please specify. ANSWER: Yes, Calcium. 11. Do you have any of the following medical conditions: Anorexia or bulimia, asthma or emphysema, end stage renal disease, hyperparathyroidism, any seizure disorders, cancer, inflammatory bowel diseases, hysterectomy, other ??? please specify. ANSWER: Yes, Asthma or Emphysema, Cancer, history thyroid, COPD. 12. What was your maximum height (inches)? 66. 13. Do you perform weight bearing exercise regularly? No. 14. Do you regularly consume dairy products? Yes. 15. Do you drink caffeinated beverages? Yes. If female: 16. At what age did your period start? 13. 17. Are you premenopausal? No. 18. How many full term pregnancies have you had? 2. 19. Have you ever missed your period for more than 6 months in a row (not including or menopause)? No. TECHNIQUE: Bone mineral density study was performed using the [employer]. FINDINGS: The results of the study expressed as bone mineral density (BMD) are as follows: Lumbar spine L1 to L4: BMD: 0.846 g/cm2. T-score: -1.8. Z-score: 0.8. Neck Left: BMD: 0.521 g/cm2. T-score: -3.0 . Z-score: -0.7. Right: BMD: 0.532 g/cm2. T-score: -2.9 . Z-score: -0.6. Total Left: BMD: 0.703 g/cm2. T-score: -2.0 . Z-score: 0.0. Right: BMD: 0.718 g/cm2. T-score: -1.8 . Z-score: 0.2. IMPRESSION: Osteoporosis. *Comparison exams done prior to 12/2019 were performed on different unit, [employer]. James Li M.D. Diagnostic Radiologist [employer] [email or web address] ASPEN/elmer JR/Dictated by: James Li MD @ 05/10/2024 10:11:00 AM (Electronically Signed)
== END 2024-05-09 14:33 | disposition home or self-care (01) ==
LOC: RAD 14:33
PROVIDERS: PCP Family Medicine; Visit Provider Internal Medicine Hematology & Oncology
DX: N95.9 Unspecified menopausal and perimenopausal disorder (principal); M81.0 Age-related osteoporosis without current pathological fracture
CPT/HCPCS: 77080

== ENCOUNTER 2024-05-28 13:00 | Outpatient (RCR) | payer MEDICARE, BC, SELFPAY | END 2024-10-14 23:59 | disposition home or self-care (01) | LOC: CCIC 13:00 | PROVIDERS: PCP Family Medicine; Visit Provider Internal Medicine Hematology & Oncology | DX: C50.912 Malignant neoplasm of unspecified site of left female breast (principal); Z17.0 Estrogen receptor positive status [ER+]; M81.0 Age-related osteoporosis without current pathological fracture; H35.30 Unspecified macular degeneration | CPT/HCPCS: 99202; 99205; 99215; G0463 ==

== ENCOUNTER 2025-01-20 14:04 | Outpatient (CLI) | payer MEDICARE, BC, SELFPAY ==
--- NOTE | 2025-01-20 14:30 | CRLHL7_ITS ---
For Patients: As a result of the Century Cures Act, medical imaging exams and procedure reports are released immediately into your electronic medical record. You may view this report before your referring provider. If you have questions, please contact your health care provider. INDICATION: Pancreatic cyst. COMPARISON: Abdominal MRIs dated 30 December 2022, 18 Dec 2020, and 14 January 2014. TECHNIQUE: Abdominal MRI with T1 in- and out of phase, T2, diffusion weighted, and progressively delayed post-contrast images. Intravenous gadolinium administered. FINDINGS: No fatty infiltration of the liver. 1.8 cm cyst in segment 2 of the liver. A few other tiny cysts in the liver. No other focal abnormalities identified in the visualized portions of the liver, spleen, and adrenal glands. 1.4 cm cyst in the superior pole of the left kidney. A few other small cysts in the kidneys. The kidneys are otherwise unremarkable. No hydronephrosis. 4 mm cyst in the head/neck of the pancreas is not significantly changed. The pancreas is otherwise unremarkable. No adenopathy. Impression : 1. 4 mm cyst in the head/neck of the pancreas is not significantly changed. No further evaluation is required. Dictated by Samir Davenport MD @ 01/21/2025 8:53:30 AM (Electronically Signed)
== END 2025-01-20 14:05 | disposition home or self-care (01) ==
LOC: MRI 14:06
PROVIDERS: PCP Family Medicine; Visit Provider Family Medicine
DX: K86.2 Cyst of pancreas (principal)
CPT/HCPCS: 74183; A9575

== ENCOUNTER 2025-04-15 08:40 | Outpatient (CLI) | payer MEDICARE, BC, SELFPAY ==
--- NOTE | 2025-04-15 09:00 | CRLHL7_ITS ---
For Patients: As a result of the Century Cures Act, medical imaging exams and procedure reports are released immediately into your electronic medical record. You may view this report before your referring provider. If you have questions, please contact your health care provider. INDICATION: Otitis media TECHNIQUE: CT temporal bone, bilateral IAC without contrast. COMPARISON: None. FINDINGS: Right ear: Minimal mucosal thickening along the external auditory canal. There is significant right mastoid effusion. Mucosal thickening and fluid is identified in the middle ear cavity. No middle ear ossicular erosion. Scutum is intact. There is no erosion of the tegmen tympani and mastoideum. Inner ear structures are unremarkable. Left ear: External auditory canal is patent. Middle ear ossicles are intact. No middle ear effusion or mucosal thickening. Prussak`s space is clear. Scutum is intact. Small left mastoid effusion. Tegmen tympani and mastoideum are intact. Inner ear structures are unremarkable. IMPRESSION: 1. Findings are suggestive of right otitis media and mastoid effusion. Mild mucosal thickening along the external auditory canal, otitis externa can not be excluded. Direct visualization and clinical correlation is recommended. 2. Minimal left mastoid effusion. Please note that all CT scans at this facility use dose modulation, iterative reconstruction, and/or weight-based dosing when appropriate to reduce radiation dose to as low as reasonably achievable. Dictated by Miky Gill MD @ 04/17/2025 8:03:19 AM (Electronically Signed)
== END 2025-04-15 08:41 | disposition home or self-care (01) ==
PROVIDERS: PCP Family Medicine; Referring Provider Otolaryngology; Visit Provider Physician Assistant
DX: H66.90 Otitis media, unspecified, unspecified ear (principal)
CPT/HCPCS: 70480

== ENCOUNTER 2025-04-15 11:20 | Outpatient (RCR) | payer MEDICARE, BC, SELFPAY | END 2025-06-07 23:59 | disposition home or self-care (01) | LOC: CCIC 11:20 | PROVIDERS: PCP Family Medicine; Visit Provider Internal Medicine Hematology & Oncology | DX: C50.912 Malignant neoplasm of unspecified site of left female breast (principal); Z17.0 Estrogen receptor positive status [ER+]; M81.0 Age-related osteoporosis without current pathological fracture; Z79.810 Long term (current) use of selective estrogen receptor modulators (SERMs); H66.90 Otitis media, unspecified, unspecified ear | CPT/HCPCS: 70480; 99214; G0463 ==

== ENCOUNTER 2025-05-09 08:43 | Day surgery (SDC) | payer MEDICARE, BC, SELFPAY ==
[2025-05-09] VITALS (9 sets, daily range): BP systolic 121–146; BP diastolic 64–99; PULSE 75–90; RESP 14–20; TEMP 36.6–36.9; O2SAT 91–95; BMI 32.1
[2025-05-09] MEDS: LACTATED RINGERS 500 ML 500 ML 100 ML IV (09:45)
[2025-05-09] MEDS: NEOMYCIN/POLYMYX B/HC OTIC-NC 4 DROP EAR-RIGHT (10:12)
--- NOTE | 2025-05-09 10:33 | P.ANES_ITS ---
Anesthesia Charges Start Date/Time Anesthesia Start Date: 05/09/25 Anesthesia Start Time: 10:01 Stop Date/Time Anesthesia Stop Date: 05/09/25 Anesthesia Stop Time: 10:35 Coding CPT Codes CPT Codes: ANESTH EAR SURGERY - 89956 ([id number]) P3 - PATIENT W/SEVERE SYS DISEASE, QK - FISH FARMER 2-4 CNCRNT ANES PROC, QX - CASE MANAGEMENT RN SVC W/ MD MED DIRECTION
--- NOTE | 2025-05-09 10:33 | W.ANESCHARGE ---
Anesthesia Charges Start Date/Time Anesthesia Start Date: 05/09/25 Anesthesia Start Time: 10:01 Stop Date/Time Anesthesia Stop Date: 05/09/25 Anesthesia Stop Time: 10:35 Coding CPT Codes CPT Codes: ANESTH EAR SURGERY - 54755 ([id number]) P3 - PATIENT W/SEVERE SYS DISEASE, QK - CLOTH PRINTING BACK TENDER 2-4 CNCRNT ANES PROC, QX - C WEB DEVELOPER SVC W/ MD MED DIRECTION
--- NOTE | 2025-05-09 11:18 | P.ANES_ITS ---
Anesthesia Charges Start Date/Time Anesthesia Start Date: 05/09/25 Anesthesia Start Time: 10:01 Stop Date/Time Anesthesia Stop Date: 05/09/25 Anesthesia Stop Time: 10:35 Summary Extremes of Age - Over 70 or under 1: MDA Coding CPT Codes CPT Codes: ANESTH EAR SURGERY - 01905 ([id number]) QK - STEAM AND GAS TURBINES ASSEMBLER 2-4 CNCRNT ANES PROC, QX - CONTOUR GRINDER SVC W/ MD MED DIRECTION, P3 - PATIENT W/SEVERE SYS DISEASE Additional Codes: Summary - Extremes of Age - Over 70 or under 1: MDA ([id number])
--- NOTE | 2025-05-09 11:18 | W.ANESCHARGE ---
Anesthesia Charges Start Date/Time Anesthesia Start Date: 05/09/25 Anesthesia Start Time: 10:01 Stop Date/Time Anesthesia Stop Date: 05/09/25 Anesthesia Stop Time: 10:35 Summary Extremes of Age - Over 70 or under 1: MDA Coding CPT Codes CPT Codes: ANESTH EAR SURGERY - 87754 ([id number]) QK - CITY MAIL CARRIER 2-4 CNCRNT ANES PROC, QX - PRINTING SHOP SUPERVISOR SVC W/ MD MED DIRECTION, P3 - PATIENT W/SEVERE SYS DISEASE Additional Codes: Summary - Extremes of Age - Over 70 or under 1: MDA ([id number])
--- NOTE | 2025-05-09 12:14 | P.ENTPROC_ITS ---
Procedure Note Date of procedure: 05/09/25 Procedure: Preoperative diagnosis right serous otitis media, confirmed by CT temporal bone Postoperative diagnosis same plus possible vascular lesion middle ear or high- riding jugular bulb Procedure right myringotomy without tube placement Under general trach anesthesia patient was prepped and draped usual fashion. Arm an inferior radial myringotomy was incision was made. This him know this was done and shallow fashion nonetheless there was a large amount of bleeding. Was not clear if the canal was lacerated by the myringotomy blade or if this was coming from the middle ear space. Bleeding was quickly controlled with pressure and cotton ball. I elected to not continue with trying to place a tube and rather just placed Gelfoam against the inferior tympanic membrane and canal wall and placed a cotton ball. She continued to ooze slightly through this. We will arrange for a vascular study of the middle ear space. Patient procedure well was taken recovery in satisfactory condition. Total blood loss during procedure was appr oximately 20 mL. Surgeon: Karan Coker MD
== END 2025-05-09 12:41 | disposition home or self-care (01) ==
LOC: OR 08:44
PROVIDERS: PCP Family Medicine; Visit Provider Otolaryngology
PROC: (CPT 69420; principal; 2025-05-09 10:30)
DX: H65.91 Unspecified nonsuppurative otitis media, right ear (principal)
CPT/HCPCS: 69421; 00120; 99100; J0330; J1100; J2405; J2704; J3010; J7120

== ENCOUNTER 2025-05-12 16:20 | Outpatient (CLI) | payer MEDICARE, BC, SELFPAY ==
--- NOTE | 2025-05-12 16:45 | CRLHL7_ITS ---
For Patients: As a result of the Century Cures Act, medical imaging exams and procedure reports are released immediately into your electronic medical record. You may view this report before your referring provider. If you have questions, please contact your health care provider. INDICATION: Bleeding from the right ear. TECHNIQUE: CTA neck with contrast bolus tracking, 3D angiographic rendering using maximum intensity projection (MIP) and images permanently archived. FINDINGS: There is a nearly 1 centimeter hypervascular mass at the inferior aspect of the right tympanic membrane. It approximates venous density, though no obvious connection with the jugular venous system is noted. The lesion is separate from the internal carotid artery. There is no significant carotid or vertebral artery stenosis or dissection. IMPRESSION: Hypervascular mass at the inferior aspect of the right tympanic membrane that may represent a glomus tympanicum, less likely a vascular malformation. Recommend contrast-enhanced magnetic resonance imaging for further evaluation. Please note that all CT scans at this facility use dose modulation, iterative reconstruction, and/or weight-based dosing when appropriate to reduce radiation dose to as low as reasonably achievable. Dictated by Toño Keith MD @ 05/13/2025 3:40:43 PM (Electronically Signed)
[2025-05-12 16:57] LABS: Creatinine* 0.6 mg/dL (0.5-1.5); Estimated Glomerular Filt Rate 91 ml/min
== END 2025-05-12 16:21 | disposition home or self-care (01) ==
PROVIDERS: PCP Family Medicine; Visit Provider Otolaryngology
DX: H92.20 Otorrhagia, unspecified ear (principal); H93.8X1 Other specified disorders of right ear
CPT/HCPCS: 36415; 70498; 82565; Q9967

== ENCOUNTER 2025-05-23 14:19 | Outpatient (CLI) | payer MEDICARE, BC, SELFPAY ==
--- NOTE | 2025-05-23 14:30 | CRLHL7_ITS ---
For Patients: As a result of the Century Cures Act, medical imaging exams and procedure reports are released immediately into your electronic medical record. You may view this report before your referring provider. If you have questions, please contact your health care provider. INDICATION: Glomus tympanicum. TECHNIQUE: Non-contrast sagittal T1, axial FLAIR, FSE T2, DWI, posterior fossa CISS images provided. Supplemental post contrast T1 weighted axial and coronal high resolution images through the posterior fossa with fat saturation and post contrast whole head axial T1 weighted images submitted. Contrast: 20 ml Dotarem IV COMPARISON: No comparisons. FINDINGS: No midline shift. No hydrocephalus. There is no evidence of diffusion restriction to suggest acute ischemia. The pituitary gland, optic chiasm, pineal gland, and cerebellar tonsils are unremarkable. Unremarkable temporomandibular joints. Multiple small scattered foci of T2 prolongation in the supratentorial white matter are nonspecific. Moderate T2 hyperintense opacification of the right middle ear cavity. There is a 1.3 x 0.5 cm T2 hypointense solidly enhancing lesion filling the right middle ear cavity. The ossicles are embedded in the lesion. Moderate right and mild left mastoid effusion. The cerebellopontine angles, otic capsule structures, internal auditory canals and cranial nerve cisternal segments are grossly normal. Calvarial bone marrow signal is within normal limits. The orbits are unremarkable. Scalp and soft tissues are grossly normal. Impression : 1. No evidence of acute intracranial abnormality. 2. A 1.3 cm solidly enhancing T2 hypointense lesion filling the right middle ear cavity is concerning for a glomus tympanicum. The ossicles are embedded in the lesion. 3. Moderate right mastoid effusion and mild left mastoid effusion. 4. Mild chronic small-vessel ischemic changes. [id number] generalized parenchymal volume loss. Dictated by James Lozada MD @ 05/26/2025 11:09:18 AM (Electronically Signed)
== END 2025-05-23 14:20 | disposition home or self-care (01) ==
LOC: MRI 14:19
PROVIDERS: PCP Family Medicine; Visit Provider Physician Assistant
DX: I99.9 Unspecified disorder of circulatory system (principal); I67.82 Cerebral ischemia
CPT/HCPCS: 70553; A9575